=== PATIENT | female | born 1955 | race Hispanic/Latino ===

== ENCOUNTER 2021-07-21 05:45 | Day surgery (SDC) | payer OTHER ==
[2021-07-15 13:14] LABS: BASOPHILS % (AUTO) 0.2 % (0.0-5.0); EOSINOPHILS % (AUTO) 3.9 % (0.0-8.0); HEMATOCRIT 38.9 % (36-48); LYMPHOCYTES % (AUTO) 40.6 % (21.0-51.0); MEAN CORPUSCULAR HGB CONC 32.6 g/dL (32.0-36.0); MONOCYTES % (AUTO) 11.1 % (3.0-13.0); NEUTROPHILS % (AUTO) 43.8 % (40.0-77.0); PLATELET COUNT (AUTO) 155 K/uL (130-400); RED BLOOD CELL COUNT(AUTO) 4.23 MIL/uL (4.00-5.50); WHITE BLOOD COUNT (AUTO) 5.1 K/uL (4.8-10.8)
[2021-07-15 13:26] LABS: INR 1.18 (0.85-1.15); PROTHROMBIN TIME 12.7 SEC (9.6-11.6)
[2021-07-15 13:27] LABS: PARTIAL THROMBOPLASTIN TIME 34.7 SEC (26.3-35.5)
[2021-07-15 13:29] LABS: APPEARANCE,URINE Clear (CLEAR); BILIRUBIN,URINE Negative (NEGATIVE); COLOR,URINE Yellow (YELLOW); GLUCOSE, URINE (UA) Negative (NEGATIVE); KETONES,URINE Negative (NEGATIVE); LEUKOCYTE ESTERASE ,URINE Moderate (NEGATIVE); NITRATE,URINE Negative (NEGATIVE); OCCULT BLOOD,URINE Negative (NEGATIVE); PH,URINE 6.5 (5.0-8.0); PROTEIN,URINE Negative (NEGATIVE)
[2021-07-15 13:39] LABS: CREATININE 0.6 mg/dL (0.5-1.5); POTASSIUM 3.9 mmol/L (3.5-5.1)
[2021-07-15 14:02] LABS: BACTERIA,URINE Rare /HPF (None Seen); RBC,URINE 0-1 /HPF (0-1); SQUAMOUS EPITHELIAL CELL,UR Few /HPF (0-2); WBC,URINE 0-1 /HPF (0-1)
[2021-07-20 10:13] VITALS: BP 158/70
[2021-07-21] VITALS (10 sets, daily range): BP systolic 106–143; BP diastolic 53–65
[~2021-07-21] VITALS: Ht 160 cm; Wt 80.6 kg
[2021-07-21] MEDS ORDERED: 0.9% NACL 500ML IV.SOLN 500 ML IV SCH (06:00)
[2021-07-21] MEDS ORDERED: 0.9%NACL 1000ML 1,000 ML IV ONE (06:23)
[2021-07-21] MEDS ORDERED: FENTANYL CITRATE PF 50 MCG/1 ML 2ML VIAL ONE (07:05)
[2021-07-21] MEDS ORDERED: HEPARIN 10,000 UNIT/10ML (1,000 UNIT/ML) VIAL ONE (07:05)
[2021-07-21] MEDS ORDERED: MIDAZOLAM HCL 1 MG/ML 2ML VIAL ONE (07:05)
[2021-07-21] MEDS ORDERED: IOHEXOL 350 MG/ML 100ML INFUS..BTL IV ONE (07:05)
[2021-07-21] MEDS ORDERED: LIDOCAINE HCL 400MG/20ML VIAL ONE (07:06)
[2021-07-21] MEDS ORDERED: NITROGLYCERIN 2 MG VIAL IV ONE (07:06)
[2021-07-21] MEDS ORDERED: 0.9%NACL 1000ML 1,000 ML IV SCH (08:30)
== END 2021-07-21 12:35 | disposition home or self-care (01) ==
LOC: DAH 05:45
PROVIDERS: ATTEND Internal Medicine Cardiovascular Disease
DX: I25.119 Atherosclerotic heart disease of native coronary artery with unspecified angina pectoris (principal); I48.0 Paroxysmal atrial fibrillation; I10 Essential (primary) hypertension; K21.9 Gastro-esophageal reflux disease without esophagitis; E78.5 Hyperlipidemia, unspecified; R60.9 Edema, unspecified; Z98.891 History of uterine scar from previous surgery; Z82.49 Family history of ischemic heart disease and other diseases of the circulatory system; Z79.899 Other long term (current) drug therapy; Z79.01 Long term (current) use of anticoagulants
CPT/HCPCS: 36415; 71045; 80048; 81001; 85025; 85610; 85730; 87088; 93005; 93454; A4215; A4216; A4221; A4222; A4223 ×3; A4606; A4663; C1760; C1894 ×2; J1644; J2250; J3010; J3490 ×2; J7030; Q9965; Q9967; 99156; 99157

== ENCOUNTER 2024-02-16 05:38 | Day surgery (SDC) | payer OTHER ==
[2024-02-14 08:46] LABS: BASOPHILS # (AUTO) 0.02 K/uL (0.00-0.20); BASOPHILS % (AUTO) 0.5 % (0.0-5.0); EOSINOPHILS # (AUTO) 0.22 K/uL (0.00-0.70); HEMATOCRIT 36.8 % (36-48); IMMATURE GRANULOCYTE ABSOLUTE 0.01 K/uL (0-1); LYMPHOCYTES # (AUTO) 2.3 K/uL (1.0-4.8); LYMPHOCYTES % (AUTO) 52.7 % (21.0-51.0); MEAN CORPUSCULAR HEMOGLOBIN 30.3 pg (27.0-33.0); MEAN CORPUSCULAR HGB CONC 33.4 g/dL (32.0-36.0); MEAN CORPUSCULAR VOLUME 90.6 fL (79-99); MONOCYTES # (AUTO) 0.5 K/uL (0.1-1.0); MONOCYTES % (AUTO) 10.2 % (3.0-13.0); NEUTROPHILS # (AUTO) 1.4 K/uL (1.8-7.7); NEUTROPHILS % (AUTO) 31.4 % (40.0-77.0); PLATELET COUNT (AUTO) 160 K/uL (130-400); RED BLOOD CELL COUNT(AUTO) 4.06 MIL/uL (4.00-5.50); WHITE BLOOD COUNT (AUTO) 4.4 K/uL (4.8-10.8)
[2024-02-14 08:52] VITALS: BP 142/73; PULSE 72; RESP 17
[2024-02-14 08:59] LABS: CREATININE 0.7 mg/dL (0.5-1.0); POTASSIUM 4.2 mmol/L (3.5-5.1)
[2024-02-14 09:11] LABS: INR 0.96 (0.85-1.15); PROTHROMBIN TIME 11.4 SEC (9.6-11.6)
[2024-02-14 09:12] LABS: PARTIAL THROMBOPLASTIN TIME 28.6 SEC (26.3-35.5)
[2024-02-14 09:24] LABS: B-TYPE NATRIURETIC PEPTIDE 130 pg/mL (0-100)
[~2024-02-16] VITALS: Ht 160 cm; Wt 84.6 kg
[2024-02-16] VITALS (11 sets, daily range): BP systolic 118–147; BP diastolic 47–66; PULSE 63–75; RESP 14–16
[~2024-02-16 05:38] MED LIST: APIX5TAB PO; AZEL137S11 NS; CALCIUM MINI PO; CHOL-34 PO; LORA10TA7 PO; METO-409 PO; MONT-39 PO; MULT-1258 PO; MULT-1283 PO; PANT20TA18 PO; RIME75TA PO; ROSU10TA72 PO; coq10 PO; krill oil PO
[2024-02-16] MEDS: 0.9%NACL 1000ML 1,000 ML IV ONE (07:05)
[2024-02-16] MEDS ORDERED: LIDOCAINE HCL 400MG/20ML VIAL ONE (07:29)
[2024-02-16] MEDS ORDERED: FENTANYL CITRATE PF 50 MCG/1 ML 2ML VIAL ONE (07:29)
[2024-02-16] MEDS ORDERED: MIDAZOLAM HCL 1 MG/ML 2ML VIAL ONE (07:29)
[2024-02-16] MEDS ORDERED: NICARDIPINE 25MG INJ IV ONE (07:29)
[2024-02-16] MEDS ORDERED: HEPARIN 10,000 UNIT/10ML (1,000 UNIT/ML) VIAL ONE (07:29)
[2024-02-16] MEDS ORDERED: IOHEXOL 350 MG/ML 100ML INFUS..BTL IV ONE (07:29)
[2024-02-16] MEDS ORDERED: NITROGLYCERIN 50MG VIAL ONE (07:30)
[2024-02-16] MEDS ORDERED: GLUCAGON 1MG KIT 1 MG ML IM PRN (09:00)
[2024-02-16] MEDS ORDERED: DEXTROSE 50%-WATER 50 ML DISP.SYRIN IV PRN (09:00)
[2024-02-16] MEDS ORDERED: 0.9%NACL 1000ML 1,000 ML IV SCH (09:00)
== END 2024-02-16 12:50 | disposition home or self-care (01) ==
LOC: DAH 05:38
PROVIDERS: ATTEND Internal Medicine Cardiovascular Disease
DX: I35.0 Nonrheumatic aortic (valve) stenosis (principal); I48.0 Paroxysmal atrial fibrillation; I25.10 Atherosclerotic heart disease of native coronary artery without angina pectoris; I10 Essential (primary) hypertension; K21.9 Gastro-esophageal reflux disease without esophagitis; E78.5 Hyperlipidemia, unspecified; J44.9 Chronic obstructive pulmonary disease, unspecified; I25.2 Old myocardial infarction; Z98.891 History of uterine scar from previous surgery; Z82.49 Family history of ischemic heart disease and other diseases of the circulatory system; Z79.01 Long term (current) use of anticoagulants; Z79.899 Other long term (current) drug therapy
CPT/HCPCS: 80048; 83880; 85025; 85610; 85730; 36415; 71045; 93005; 93454; 76882; C1894 ×2; C1760; J3010; J3490 ×3; J7030; J2250; J1644; Q9967; A4215; A4335; A4222; A4221; A4663; A4216; A4606; Q9965; A4223 ×3; A4554; 96360; 96361; 99156; 99157

== ENCOUNTER → 2024-04-03 | Outpatient (CLI) | payer OTHER ==
[2024-04-03 12:39] LABS: ALBUMIN 3.5 g/dL (3.5-5.0); BILIRUBIN,TOTAL 0.4 mg/dL (0.2-1.0); CREATININE 0.7 mg/dL (0.5-1.0); POTASSIUM 4.3 mmol/L (3.5-5.1); TOTAL PROTEIN, SERUM 7.6 g/dL (6.0-8.3)
== END | disposition home or self-care (01) ==
LOC: LAB 08:07
PROVIDERS: ATTEND Internal Medicine Cardiovascular Disease
DX: R60.9 Edema, unspecified (principal)
CPT/HCPCS: 36415; 80053

== ENCOUNTER 2024-06-28 12:23 | Inpatient (IN) | payer OTHER ==
[~2024-06-28] VITALS: Ht 160 cm; Wt 81.2 kg
[~2024-06-28 12:23] MED LIST changes: -CLOP75TA32 PO; -FLUT1BLS15 IH; -PROP10DR2 OP; -TORS20TA4 PO
[2024-06-28 13:47] LABS: BASOPHILS # (AUTO) 0.02 K/uL (0.00-0.20); BASOPHILS % (AUTO) 0.3 % (0.0-5.0); EOSINOPHILS # (AUTO) 0.33 K/uL (0.00-0.70); EOSINOPHILS % (AUTO) 5.5 % (0.0-8.0); HEMATOCRIT 36.3 % (36-48); IMMATURE GRANULOCYTE ABSOLUTE 0.02 K/uL (0-1); LYMPHOCYTES # (AUTO) 2.9 K/uL (1.0-4.8); LYMPHOCYTES % (AUTO) 47.6 % (21.0-51.0); MEAN CORPUSCULAR HGB CONC 33.1 g/dL (32.0-36.0); MEAN CORPUSCULAR VOLUME 90.8 fL (79-99); MONOCYTES # (AUTO) 0.8 K/uL (0.1-1.0); MONOCYTES % (AUTO) 12.8 % (3.0-13.0); NEUTROPHILS % (AUTO) 33.5 % (40.0-77.0); PLATELET COUNT (AUTO) 169 K/uL (130-400); RED CELL DISTRIBUTION WIDTH 12.7 % (11.0-15.5)
[2024-06-28 13:53] LABS: CREATININE 0.8 mg/dL (0.5-1.0); POTASSIUM 3.3 mmol/L (3.5-5.1)
[2024-06-28 13:55] LABS: INR 1.1 (0.85-1.15); PROTHROMBIN TIME 11.8 SEC (9.6-11.6)
[2024-06-28] MEDS ORDERED: FAMOTIDINE 20MG VIAL IV PRN (15:30)
[2024-06-28] MEDS ORDERED: DEXTROSE 50%-WATER 50 ML DISP.SYRIN IV PRN (15:30)
[2024-06-28] MEDS ORDERED: NITROGLYCERIN 0.4 MG SL TAB SL PRN (15:30)
[2024-06-28] MEDS ORDERED: ondanSETRON 4MG INJ IV PRN (15:30)
[2024-06-28] MEDS ORDERED: LACTULOSE 20 GM/30 ML UDCUP PO PRN (15:30)
[2024-06-28] MEDS ORDERED: DiphenhydrAMINE HCL 50 MG/ML VIAL IV PRN (15:30)
[2024-06-28] MEDS ORDERED: PoTASSium chloRIDE 20MEQ ER 20 MEQ ERTAB PO PRN (15:30)
[2024-06-28] MEDS ORDERED: PoTASSium chloRIDE 10MEQ/100ML 100 ML IV PRN (15:30)
[2024-06-28] MEDS ORDERED: guaiFENesin-DM 200/20MG 10ML PO PRN (15:30)
[2024-06-28] MEDS ORDERED: acetaMINOPHEN 325 MG TAB PO PRN ×3 (15:30)
[2024-06-28] MEDS ORDERED: ketOROlac 15MG/ML VIAL (15MG/ML) IV PRN (15:30)
[2024-06-28] MEDS ORDERED: morPHINE 2 MG SYG IVP PRN (15:30)
[2024-06-28] MEDS ORDERED: ZOLPidem TARTrate 5 MG TAB PO PRN (15:30)
[2024-06-28] MEDS ORDERED: MAG/ALUM/SIMETH 30 ML UDCUP PO PRN (15:30)
[2024-06-28] MEDS ORDERED: hydrALAZine 20MG/ML VIAL IV PRN (15:30)
[2024-06-28] MEDS ORDERED: GLUCAGON 1MG KIT 1 MG ML IM PRN (15:30)
[2024-06-28] MEDS ORDERED: MAGNESIUM 2GM PREMIX 50ML 50 ML IV PRN (15:30)
[2024-06-28] MEDS ORDERED: PoTASSium chl 10% ELIXIR 20MEQ 20 MEQ/15 ML UDCUP PO PRN (15:30)
[2024-06-28] MEDS: INSULIN humuLIN R 100 UNIT/ML 3ML SQ SCH (16:30)
[2024-06-28 16:38] LABS: INR 1.11 (0.85-1.15); PROTHROMBIN TIME 11.9 SEC (9.6-11.6)
[2024-06-28 16:39] LABS: PARTIAL THROMBOPLASTIN TIME 30.4 SEC (26.3-35.5)
[2024-06-28] MEDS ORDERED: IOHEXOL 350 MG/ML 100ML INFUS..BTL IV ONE (17:20)
[2024-06-28 17:45] VITALS: BP 148/68; PULSE 80; RESP 18; TEMP 98.1
[2024-06-28 18:13] VITALS: O2SAT 97
[2024-06-28 19:48] VITALS: BP 166/73; PULSE 75; RESP 18; TEMP 98.2
[2024-06-28] MEDS: FAMOTIDINE 20MG VIAL IV SCH (20:05)
[2024-06-28 20:40] VITALS: O2SAT 95
[2024-06-28] MEDS ORDERED: HEParin 5,000 UNIT VIAL SQ SCH (21:00)
[2024-06-28] MEDS ORDERED: CLOP75TA32 PO (23:56)
[2024-06-28] MEDS ORDERED: PROP10DR2 OP (23:56)
[2024-06-28] MEDS ORDERED: FLUT1BLS15 IH (23:56)
[2024-06-28] MEDS ORDERED: TORS20TA4 PO (23:56)
[2024-06-29 00:08] VITALS: BP 150/61; PULSE 81; RESP 18; TEMP 98.7
[2024-06-29 03:48] LABS: BASOPHILS # (AUTO) 0.02 K/uL (0.00-0.20); BASOPHILS % (AUTO) 0.3 % (0.0-5.0); EOSINOPHILS # (AUTO) 0.23 K/uL (0.00-0.70); HEMATOCRIT 32.3 % (36-48); IMMATURE GRANULOCYTE ABSOLUTE 0.02 K/uL (0-1); LYMPHOCYTES # (AUTO) 2.5 K/uL (1.0-4.8); LYMPHOCYTES % (AUTO) 42.8 % (21.0-51.0); MEAN CORPUSCULAR HEMOGLOBIN 29.1 pg (27.0-33.0); MEAN CORPUSCULAR HGB CONC 32.5 g/dL (32.0-36.0); MEAN CORPUSCULAR VOLUME 89.5 fL (79-99); MONOCYTES # (AUTO) 0.7 K/uL (0.1-1.0); MONOCYTES % (AUTO) 11.5 % (3.0-13.0); NEUTROPHILS # (AUTO) 2.4 K/uL (1.8-7.7); NEUTROPHILS % (AUTO) 41.1 % (40.0-77.0); PLATELET COUNT (AUTO) 154 K/uL (130-400); RED BLOOD CELL COUNT(AUTO) 3.61 MIL/uL (4.00-5.50); RED CELL DISTRIBUTION WIDTH 12.8 % (11.0-15.5); WHITE BLOOD COUNT (AUTO) 5.8 K/uL (4.8-10.8)
[2024-06-29 04:12] LABS: HEMOGLOBIN A1C 5.9 % (4.0-6.0)
[2024-06-29 04:23] LABS: ALBUMIN 2.9 g/dL (3.5-5.0); BILIRUBIN,DIRECT 0.1 mg/dL (0.0-0.3); BILIRUBIN,TOTAL 0.3 mg/dL (0.2-1.0); CREATININE 0.8 mg/dL (0.5-1.0); POTASSIUM 3.6 mmol/L (3.5-5.1); TOTAL PROTEIN, SERUM 6.8 g/dL (6.0-8.3)
[2024-06-29 04:34] VITALS: BP 142/57; PULSE 82; RESP 18; TEMP 98
[2024-06-29 07:40] VITALS: BP 134/54; PULSE 77; RESP 18; TEMP 99.1
[2024-06-29 08:00] VITALS: O2SAT 95
[2024-06-29 11:35] VITALS: BP 130/69; PULSE 82; RESP 18; TEMP 98.3
[2024-06-29] MEDS ORDERED: PoTASSium chloRIDE 10MEQ SR 10 MEQ/TAB TAB.SR.24H PO PRN (14:30)
[2024-06-29] MEDS: PROPYLENE GLYCOL OP SCH (16:35)
[2024-06-29] MEDS: PEG OP SCH (16:35)
[2024-06-29] MEDS ORDERED: atorVAStatin 20 MG TABLET PO SCH (21:00)
[2024-06-29] MEDS ORDERED: monteLUKAST sodIUM 10 MG TAB PO SCH (21:00)
[2024-06-30] MEDS ORDERED: LORATAdine 10 mg 10 MG TABLET PO SCH (09:00)
[2024-06-30] MEDS ORDERED: (Azelastine HCl 1 SPRAY) NASAL SCH (09:00)
[2024-06-30] MEDS ORDERED: TORSEMIDE 20 MG TAB PO SCH (09:00)
[2024-06-30] MEDS ORDERED: metOPROLol sucCINATE 50 MG TAB.SR.24H PO SCH (09:00)
[2024-06-30] MEDS ORDERED: (Fluticasone/Umeclidin/Vilanter (Trelegy Ellipta 200-62.5- IH SCH (09:00)
== END 2024-06-29 16:44 | disposition short-term general hospital (02) | DRG 301 ==
LOC: EDH 12:23 → EDHIP 15:08 → 2DH 18:04
PROVIDERS: ADMIT Internal Medicine; ATTEND Internal Medicine
DX: I72.4 Aneurysm of artery of lower extremity (principal); I48.0 Paroxysmal atrial fibrillation; K21.9 Gastro-esophageal reflux disease without esophagitis; J45.909 Unspecified asthma, uncomplicated; E87.6 Hypokalemia; I25.10 Atherosclerotic heart disease of native coronary artery without angina pectoris; I10 Essential (primary) hypertension; E78.5 Hyperlipidemia, unspecified; I35.0 Nonrheumatic aortic (valve) stenosis; Z95.2 Presence of prosthetic heart valve; Z79.899 Other long term (current) drug therapy; Z79.02 Long term (current) use of antithrombotics/antiplatelets; Z79.01 Long term (current) use of anticoagulants
CPT/HCPCS: 36415; 73706; 80048; 80076; 82550; 82948; 83036; 83605; 83735; 83880; 84145; 84484; 85025; 85610; 85730; 93005; G0378; J3490; Q9967

== ENCOUNTER → 2024-06-28 | Outpatient (CLI) | payer OTHER ==
[~2024-06-28] MED LIST changes: +CLOP75TA32 PO; +FLUT1BLS15 IH; +PROP10DR2 OP; +TORS20TA4 PO
== END | disposition home or self-care (01) ==
LOC: RAH 10:44
PROVIDERS: ATTEND Internal Medicine Cardiovascular Disease
DX: T81.718A Complication of other artery following a procedure, not elsewhere classified, initial encounter (principal); I35.0 Nonrheumatic aortic (valve) stenosis; I72.9 Aneurysm of unspecified site; Z79.01 Long term (current) use of anticoagulants; X58.XXXA Exposure to other specified factors, initial encounter
CPT/HCPCS: 76882

== ENCOUNTER → 2024-07-11 | Outpatient (CLI) | payer OTHER ==
[~2024-07-11] MED LIST changes: -CALCIUM MINI PO; -CHOL-34 PO; +CLOP75TA32 PO; +FLUT1BLS15 IH; -MULT-1258 PO; -MULT-1283 PO; +PROP10DR2 OP; -RIME75TA PO; +TORS20TA4 PO; -coq10 PO; -krill oil PO
== END | disposition home or self-care (01) ==
LOC: SHCH 11:15
PROVIDERS: ATTEND Internal Medicine Cardiovascular Disease
DX: I48.0 Paroxysmal atrial fibrillation (principal)
CPT/HCPCS: 93306

== ENCOUNTER → 2024-09-30 | Outpatient (CLI) | payer OTHER ==
[~2024-09-30] MED LIST changes: +IOHEXOL 350 MG/ML 100ML INFUS..BTL IV ONE; +IOHEXOL-350 50ML VIAL IV ONE
--- NOTE | 2024-09-30 12:48 | HMCIMG ---
CT ANGIO ABD AORTA W RUNOFF HISTORY: Possible right femoral aneurysm COMPARISON: 06/28/2024 TECHNIQUE: CT angiography of the abdomen and pelvis and bilateral lower extremities was obtained using angiographic technique with maximum intensity projection reconstruction images. Patient was 150 cc of Omnipaque through intravenous route. Oral contrast was not given. FINDINGS: No pleural effusion is seen bilaterally. There is no evidence of parenchymal disease or pulmonary nodule of the visualized lower lungs. Degenerative changes of the thoracolumbar spine are present. The heart is not enlarged. Liver measures 18 cm. The liver, spleen, adrenal glands and pancreas are unremarkable. There is no evidence of hydronephrosis bilaterally. No evidence of renal stone is seen. There is diverticulosis. Fecal material is seen in the colon. There are normal size retroperitoneal and mesenteric lymph nodes. No ascites is seen. Atherosclerotic changes are present. There is diffuse atherosclerotic disease. 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 No contrast enhancement is seen in this area. High-grade stenosis is seen in the distal portion of the right common femoral artery bifurcation adjacent to the pseudoaneurysm. No evidence of abdominal aortic aneurysm is seen. The celiac, superior mesenteric and bilateral renal arteries are grossly patent. Visualized portion of the iliac and femoral arterial systems are also grossly patent. The popliteal, anterior tibial, posterior tibial) arteries are grossly patent right. Pelvic sidewalls are symmetric bilaterally. Bladder is well distended without wall thickening. IMPRESSION: 1. 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 No contrast enhancement is seen in this area. High-grade stenosis is seen in the distal portion of the right common femoral artery bifurcation adjacent to the pseudoaneurysm. CT was performed with one or more following dose reduction techniques: automated exposure control, adjustment of the mA and kv according to patient's size, or use of a iterative reconstruction technique.
== END | disposition home or self-care (01) ==
LOC: EDSTATUS 09-19 11:00 → RAH 08:02
PROVIDERS: ATTEND Internal Medicine Cardiovascular Disease
DX: I74.3 Embolism and thrombosis of arteries of the lower extremities (principal); K57.90 Diverticulosis of intestine, part unspecified, without perforation or abscess without bleeding; I70.201 Unspecified atherosclerosis of native arteries of extremities, right leg; I72.9 Aneurysm of unspecified site; I72.4 Aneurysm of artery of lower extremity; M47.815 Spondylosis without myelopathy or radiculopathy, thoracolumbar region; I70.90 Unspecified atherosclerosis; I70.291 Other atherosclerosis of native arteries of extremities, right leg
CPT/HCPCS: 75635; Q9967 ×2